=== PATIENT | female | born 1955 | race Caucasian/White ===

== ENCOUNTER → 2018-01-11 | Outpatient (CLI) | payer BC ==
[~2018-01-11] MED LIST: ASPI-555 PO; CHOL500050 PO; DICL1TAB61 PO; LISI10TA7 PO; LOVA40TA2 PO; PRAM0.5T12 PO; PROG200C7 PO; TRAM50TA4 PO
== END | disposition home or self-care (01) ==
LOC: OIH 10:25
PROVIDERS: ATTEND Internal Medicine
DX: R07.9 Chest pain, unspecified (principal); M54.9 Dorsalgia, unspecified; M25.552 Pain in left hip
CPT/HCPCS: 71100; 72070; 73502

== ENCOUNTER → 2018-08-13 | Outpatient (CLI) | payer MEDICARE | END | disposition home or self-care (01) | LOC: OIH 08:02 | PROVIDERS: ATTEND Internal Medicine | DX: I10 Essential (primary) hypertension (principal) | CPT/HCPCS: 71046 ==